=== PATIENT | female | born 1985 | race Caucasian/White ===

== ENCOUNTER 2016-05-16 07:33 | Emergency (ER) | payer MEDICAID ==
[~2016-05-16] VITALS: Ht 149.9 cm; Wt 110.4 kg
[2016-05-16] MEDS ORDERED: [UNRECOGNIZED DRUG - REMARK] PO (07:41)
[2016-05-16] MEDS ORDERED: CIPROFLOXACIN HCL 250 MG TABLET PO ONE (08:15)
[2016-05-16] MEDS ORDERED: ONDANSETRON HCL 4 MG/2 ML VIAL IVP ONE (08:15)
[2016-05-16] MEDS ORDERED: DIPHENOXYLATE/ATROP 2.5-0.025 MG TABLET PO ONE (08:15)
[2016-05-16] MEDS ORDERED: SODIUM CHLORIDE 0.9% 1,000 ML IV ONE (08:15)
[2016-05-16 09:12] LABS: EOSINOPHILS # (AUTO) 0.02 K/uL (0.00-0.70); EOSINOPHILS % (AUTO) 0.17 % (1.0-6.0); HEMATOCRIT 47.9 % (36-46); HEMOGLOBIN 16.2 g/dL (12.0-16.0); LYMPHOCYTES # (AUTO) 0.3 K/uL (1.0-4.8); LYMPHOCYTES % (AUTO) 2.3 % (22.0-44.0); MEAN CORPUSCULAR HEMOGLOBIN 29.6 pg (26.0-34.0); MEAN CORPUSCULAR HGB CONC 33.8 G/dL (31.0-37.0); MEAN CORPUSCULAR VOLUME 88 fL (80-100); MONOCYTES # (AUTO) 0.2 K/uL (0.1-1.0); MONOCYTES % (AUTO) 1.4 % (2.0-9.0); NEUTROPHILS # (AUTO) 13.1 K/uL (1.8-7.7); PLATELET COUNT (AUTO) 231 K/uL (150-450); RED BLOOD CELL COUNT(AUTO) 5.47 MIL/uL (4.00-5.20); RED CELL DISTRIBUTION WIDTH 14.5 % (11.5-14.5); WHITE BLOOD COUNT (AUTO) 13.7 K/uL (4.5-11.0)
[2016-05-16 09:13] LABS: RBC MORPHOLOGY COMMENT NORMAL RBC MORPH
[2016-05-16 09:19] LABS: CREATININE 1.06 mg/dL (0.60-1.30); POTASSIUM 3.6 mmol/L (3.5-5.1)
[2016-05-16 09:26] LABS: ALBUMIN 4.1 g/dL (3.4-5.0); BILIRUBIN,TOTAL 0.7 mg/dL (0.1-1.0); TOTAL PROTEIN, SERUM 7.9 g/dL (6.4-8.2)
[2016-05-16] MEDS ORDERED: KETOROLAC TROMETHAMINE 30 MG/ML VIAL IVP ONE (12:45)
[2016-05-16 14:22] VITALS: BP 100/56
[2016-05-17] MEDS ORDERED: LOPE2 PO (17:01)
[2016-05-17] MEDS ORDERED: ONDA4 PO (17:01)
== END 2016-05-16 14:30 | disposition home or self-care (01) ==
LOC: EMS 07:35
DX: R11.2 Nausea with vomiting, unspecified (principal); R10.13 Epigastric pain; R19.7 Diarrhea, unspecified; Z90.49 Acquired absence of other specified parts of digestive tract
CPT/HCPCS: 36415; 80053; 85025; 96361; 96374; 99285; J1885; J2405; J7030

== ENCOUNTER 2016-05-17 16:15 | Emergency (ER) | payer MEDICAID ==
[~2016-05-17] VITALS: Ht 149.9 cm; Wt 109.0 kg
[~2016-05-17 16:15] MED LIST: [UNRECOGNIZED DRUG - REMARK] PO
[2016-05-17] MEDS ORDERED: ONDA4 PO (17:01)
[2016-05-17] MEDS ORDERED: LOPE2 PO (17:01)
[2016-05-17] MEDS ORDERED: SODIUM CHLORIDE 0.9% 1,000 ML IV ONE ×2 (17:58→20:45)
[2016-05-17] MEDS ORDERED: ONDANSETRON HCL 4 MG/2 ML VIAL IVP ONE ×2 (18:00→21:15)
[2016-05-17 18:29] LABS: BASOPHILS % (AUTO) 0.4 % (0.0-2.0); EOSINOPHILS % (AUTO) 2.6 % (1.0-6.0); HEMOGLOBIN 12.9 g/dL (12.0-16.0); LYMPHOCYTES # (AUTO) 2.2 K/uL (1.0-4.8); LYMPHOCYTES % (AUTO) 33.4 % (22.0-44.0); MEAN CORPUSCULAR HEMOGLOBIN 29.3 pg (26.0-34.0); MEAN CORPUSCULAR HGB CONC 33.2 G/dL (31.0-37.0); MEAN CORPUSCULAR VOLUME 88 fL (80-100); MONOCYTES # (AUTO) 0.7 K/uL (0.1-1.0); MONOCYTES % (AUTO) 10.7 % (2.0-9.0); NEUTROPHILS # (AUTO) 3.4 K/uL (1.8-7.7); NEUTROPHILS % (AUTO) 52.9 % (40.0-70.0); PLATELET COUNT (AUTO) 200 K/uL (150-450); RED BLOOD CELL COUNT(AUTO) 4.41 MIL/uL (4.00-5.20); RED CELL DISTRIBUTION WIDTH 14.1 % (11.5-14.5); WHITE BLOOD COUNT (AUTO) 6.5 K/uL (4.5-11.0)
[2016-05-17 18:36] LABS: CHLORIDE 106 mmol/L (98-107)
[2016-05-17 18:37] LABS: ANION GAP 8 mmol/L (8-16); CALCIUM, TOTAL 8.3 mg/dL (8.8-10.5); CARBON DIOXIDE 26 mmol/L (22-29); GLOMERULAR FILTR. RATE CALC > 60 mL/min (>60); POTASSIUM 3.2 mmol/L (3.5-5.1); SODIUM SERUM 140 mmol/L (136-145); UREA NITROGEN, BLOOD 8 mg/dL (7-18)
[2016-05-17 18:43] LABS: APPEARANCE,URINE CLEAR (CLEAR); GLUCOSE, URINE (UA) NEGATIVE (NEGATIVE); KETONES,URINE NEGATIVE (NEGATIVE); LEUKOCYTE ESTERASE ,URINE NEGATIVE (NEGATIVE); OCCULT BLOOD,URINE NEGATIVE (NEGATIVE); PROTEIN,URINE NEGATIVE (NEGATIVE)
[2016-05-17 18:43] LABS: ALANINE AMINOTRANSFERASE 56 U/L (12-78); ALBUMIN 3.1 g/dL (3.4-5.0); ASPARTATE AMINOTRANSFERASE 25 U/L (15-37); BILIRUBIN,TOTAL 0.5 mg/dL (0.1-1.0); TOTAL PROTEIN, SERUM 6.6 g/dL (6.4-8.2)
[2016-05-17 18:44] LABS: ADD UA MICROSCOPIC NO
[2016-05-17] MEDS ORDERED: POTASSIUM CHLORIDE 20 MEQ ER TABLET PO ONE (19:15)
[2016-05-17 21:39] LABS: OCCULT BLOOD STOOL SINGLE ONLY NEGATIVE (NEGATIVE)
[2016-05-17] MEDS ORDERED: METOCLOPRAMIDE HCL 5 MG/ML 2 ML VIAL IVP ONE (22:00)
[2016-05-17] MEDS ORDERED: TraMADol HCL 50 MG TABLET PO ONE (22:00)
[2016-05-17 22:08] VITALS: BP 134/82
== END 2016-05-17 22:11 | disposition home or self-care (01) ==
LOC: EMS 16:16
DX: R19.7 Diarrhea, unspecified (principal); R11.2 Nausea with vomiting, unspecified; I10 Essential (primary) hypertension
CPT/HCPCS: 36415; 80053; 81003; 82271; 83690; 85025; 87045; 87324; 87449; 89055; 96361; 96374; 96375; 96376; 99285; J2405; J2765; J7030

== ENCOUNTER 2016-11-15 06:47 | Emergency (ER) | payer SELFPAY ==
[~2016-11-15] VITALS: Ht 162.6 cm; Wt 109.0 kg
[~2016-11-15 06:47] MED LIST changes: +LOPE2 PO; +ONDA4 PO; -[UNRECOGNIZED DRUG - REMARK] PO
[2016-11-15] MEDS ORDERED: LOSA50TA37 PO (06:53)
[2016-11-15 07:36] VITALS: BP 141/83
[2016-11-15] MEDS ORDERED: KETOROLAC TROMETHAMINE 60 MG/2 ML VIAL IM ONE (07:45)
[2016-11-15] MEDS ORDERED: BENZONATATE 100 MG CAPSULE PO ONE (07:45)
[2016-11-15] MEDS ORDERED: AMOX TR/POT CLAV 875 MG/125 MG TABLET PO ONE (07:45)
== END 2016-11-15 08:05 | disposition home or self-care (01) ==
LOC: EMS 06:49
DX: J33.9 Nasal polyp, unspecified (principal); J01.00 Acute maxillary sinusitis, unspecified; R07.89 Other chest pain; I10 Essential (primary) hypertension; E66.9 Obesity, unspecified; Z68.41 Body mass index [BMI] 40.0-44.9, adult
CPT/HCPCS: 93005; 96372; 99283; J1885

== ENCOUNTER 2017-01-23 19:43 | Emergency (ER) | payer SELFPAY ==
[~2017-01-23] VITALS: Ht 149.9 cm; Wt 100.0 kg
[~2017-01-23 19:43] MED LIST changes: -LOPE2 PO; +LOSA50TA37 PO; -ONDA4 PO
[2017-01-23 20:02] VITALS: BP 130/72
== END 2017-01-23 20:49 | disposition home or self-care (01) ==
LOC: EMS 19:46
DX: G60.8 Other hereditary and idiopathic neuropathies (principal); I10 Essential (primary) hypertension
CPT/HCPCS: 93005; 99283

== ENCOUNTER 2024-03-09 14:34 | Emergency (ER) | payer MEDICAID ==
[~2024-03-09] VITALS: Ht 162.6 cm; Wt 106.8 kg
[~2024-03-09 14:34] MED LIST changes: +LOSA-382 PO; -LOSA50TA37 PO
[2024-03-09 14:37] VITALS: BP 129/78; PULSE 82; RESP 18; TEMP 98.6; O2SAT 100
[2024-03-09] MEDS ORDERED: TELM1TAB31 PO (14:41)
[2024-03-09] MEDS ORDERED: AMOX-457 PO (14:41)
[2024-03-09] MEDS ORDERED: PERID15L MM (14:41)
[2024-03-09] MEDS ORDERED: IBUP-1492 PO (15:20)
[2024-03-09] MEDS ORDERED: ACET-3385 PO (15:20)
[2024-03-09] MEDS: KETOROLAC TROMETHAMINE 30 MG/ML VIAL IM ONE (15:23)
== END 2024-03-09 15:30 | disposition home or self-care (01) ==
LOC: EMS 14:34
DX: K08.89 Other specified disorders of teeth and supporting structures (principal); I10 Essential (primary) hypertension; Z79.899 Other long term (current) drug therapy; Z90.49 Acquired absence of other specified parts of digestive tract; Z91.199 Patient's noncompliance with other medical treatment and regimen due to unspecified reason
CPT/HCPCS: 99283; 96372; J1885

== ENCOUNTER 2024-09-13 08:52 | Emergency (ER) | payer MEDICAID, OTHER ==
[~2024-09-13] VITALS: Ht 160 cm; Wt 118.2 kg
[~2024-09-13 08:52] MED LIST changes: +ACET-3385 PO; +AMOX-457 PO; +IBUP-1492 PO; -LOSA-382 PO; +PERID15L MM; +TELM1TAB86 PO
[2024-09-13] MEDS ORDERED: IBUP-1554 PO (09:38)
[2024-09-13] MEDS ORDERED: ACET-66 PO (09:38)
[2024-09-13] MEDS: IBUPROFEN 600 MG TABLET PO ONE (09:47)
[2024-09-13] MEDS: ACETAMINOPHEN 500 MG TABLET PO ONE (09:48)
[2024-09-13 09:53] VITALS: BP 130/74; PULSE 72; RESP 18; TEMP 97.2; O2SAT 98
== END 2024-09-13 09:59 | disposition home or self-care (01) ==
LOC: EMS 08:57
DX: S00.93XA Contusion of unspecified part of head, initial encounter (principal); I10 Essential (primary) hypertension; Z90.49 Acquired absence of other specified parts of digestive tract; Z79.899 Other long term (current) drug therapy; Y08.89XA Assault by other specified means, initial encounter; Y93.89 Activity, other specified; Y92.89 Other specified places as the place of occurrence of the external cause; Y99.0 Civilian activity done for income or pay
CPT/HCPCS: 99284; Z7502; Z7610